=== PATIENT | male | born 1965 | race Caucasian/White ===

== ENCOUNTER 2017-01-03 11:24 | Emergency (ER) | payer BC, OTHER ==
[~2017-01-03] VITALS: Ht 177.8 cm; Wt 110.0 kg
[~2017-01-03 11:24] MED LIST: Z.0.NO CURRENT MEDS
[2017-01-03 11:26] VITALS: BP 133/87; PULSE 124; RESP 17; TEMP 98.2; O2SAT 99
[2017-01-03] MEDS ORDERED: AMLO5TAB2 PO (11:41)
[2017-01-03] MEDS ORDERED: ATOR20TA15 PO (11:41)
[2017-01-03] MEDS ORDERED: HYDR25TA5 PO (11:41)
[2017-01-03 11:42] VITALS: O2SAT 95
[2017-01-03] MEDS ORDERED: SODIUM CHLOR 0.9% 1000 ML INJ 1,000 ML IV ONE ×2 (11:45→12:45)
[2017-01-03] MEDS ORDERED: MECLIZINE HCL 25 MG TAB PO ONE (11:45)
[2017-01-03] MEDS ORDERED: SODIUM CHLORIDE 0.9% FLUSH 10 ML FLUSH IVF PRN (11:45)
[2017-01-03 11:48] VITALS: BP_SYST 101; BP_SYST 114; BP_SYST 118; BP_DIAS 60; BP_DIAS 67; BP_DIAS 74; RESP 19; RESP 20; RESP 21
--- NOTE | 2017-01-03 11:50 | PD ---
HPI Chief Complaint: Dizziness Time Seen by Provider: 11:42 Travel History International Travel<30 days: No Contact w/Intl Traveler<30days: No Traveled to known affect area: No History of Present Illness HPI Patient comes in for evaluation of dizziness that began earlier today while at work. Patient states he was standing up for little while when the dizziness began. Patient reports associated nausea, diaphoresis, and some dyspnea. Patient denies any chest pain, headache, vomiting, back pain, abdominal pain, loss or change in bowel or bladder, numbness or tingling anywhere, or being on any blood thinners. Symptoms seem worse when standing and improves with sitting. [facility] where he had a EKG done that showed he was in sinus tachycardia 104. Patient states they wanted him to come via EMS, however patient refused and drove himself here. [facility] Past Medical History High Cholesterol: Yes Diabetes: No Diminished Hearing: No Hypertension: Yes Immunizations Current: No Influenza Vaccination: Yes ?: Not Social History Alcohol Use: Yes (OCCASIONALLY) Tobacco Use: Yes (1 PPD) Substance Use: No Allergies-Medications (Allergen,Severity, Reaction): Coded Allergies: No Known Allergies (Verified , 01/03/17) Reported Meds & Prescriptions Reported Meds & Active Scripts Active Reported Atorvastatin (Atorvastatin Calcium) 20 Mg Tab 20 Mg PO HS Amlodipine (Amlodipine Besylate) 5 Mg Tab 5 Mg PO DAILY Hydrochlorothiazide 25 Mg Tab 25 Mg PO DAILY Review of Systems Except as stated in HPI: all other systems reviewed are Neg Physical Exam Narrative GENERAL: Well-developed, overly nourished, in no acute distress, and non-ill appearing. SKIN: Focused skin assessment warm and dry. HEAD: Atraumatic. Normocephalic. EYES: Pupils equal and round. EOMI. No scleral icterus. No injection or drainage. ENT: No nasal bleeding or discharge. Mucous membranes pink and moist. NECK: Trachea midline. No JVD. Supple. No nuclear rigidity. CARDIOVASCULAR: Tachycardia rate and regular rhythm. No murmur appreciated. RESPIRATORY: No accessory muscle use. No respiratory distress. Clear to auscultation. Breath sounds equal bilaterally. MUSCULOSKELETAL: No obvious deformities. No clubbing. No cyanosis. No edema. Full range of motion. NEUROLOGICAL: Awake and alert. No obvious cranial nerve deficits. Motor grossly within normal limits. Normal speech. PSYCHIATRIC: Appropriate mood and affect; insight and judgment normal. Data Data Last Documented VS Vital Signs Date Time Temp Pulse Resp B/P Pulse Ox O2 Delivery O2 Flow Rate FiO2 01/03/17 11:48 100 19 114/74 109 21 118/67 115 20 101/60 01/03/17 11:42 95 Room Air 01/03/17 11:26 98.2 Orders Electrocardiogram (01/03/17 11:36) Basic Metabolic Panel (Bmp) (01/03/17 11:36) Complete Blood Count With Diff (01/03/17 11:36) Magnesium (Mg) (01/03/17 11:36) Ckmb (Isoenzyme) Profile (01/03/17 11:36) Troponin I (01/03/17 11:36) Act Partial Throm Time (Ptt) (01/03/17 11:36) Prothrombin Time / Inr (Pt) (01/03/17 11:36) Chest, Single Ap (01/03/17 11:36) Ecg Monitoring (01/03/17 11:36) Iv Access Insert/Monitor (01/03/17 11:36) Oximetry (01/03/17 11:36) Meclizine (Antivert) (01/03/17 11:45) Sodium Chloride 0.9% Flush (Ns Flush) (01/03/17 11:45) D-Dimer (01/03/17 11:36) Orthostatic Vital Signs (01/03/17 11:36) Sodium Chlor 0.9% 1000 Ml Inj (Ns 1000 M (01/03/17 11:45) Sodium Chlor 0.9% 1000 Ml Inj (Ns 1000 M (01/03/17 12:45) Labs Laboratory Tests Test 01/03/17 11:50 White Blood Count 14.1 TH/MM3 Red Blood Count 5.52 MIL/MM3 Hemoglobin 16.6 GM/DL Hematocrit 47.7 % Mean Corpuscular Volume 86.4 FL Mean Corpuscular Hemoglobin 30.1 PG Mean Corpuscular Hemoglobin 34.8 % Concent Red Cell Distribution Width 14.0 % Platelet Count 348 TH/MM3 Mean Platelet Volume 9.1 FL Neutrophils (%) (Auto) 76.5 % Lymphocytes (%) (Auto) 17.1 % Monocytes (%) (Auto) 5.5 % Eosinophils (%) (Auto) 0.7 % Basophils (%) (Auto) 0.2 % Neutrophils # (Auto) 10.8 TH/MM3 Lymphocytes # (Auto) 2.4 TH/MM3 Monocytes # (Auto) 0.8 TH/MM3 Eosinophils # (Auto) 0.1 TH/MM3 Basophils # (Auto) 0.0 TH/MM3 CBC Comment AUTO DIFF Differential Total Cells 100 Counted Neutrophils % (Manual) 59 % Band Neutrophils % 4 % Lymphocytes % 26 % Monocytes % 2 % Neutrophils # (Manual) 10.0 TH/MM3 Metamyelocytes 3 % Myelocytes 5 % Differential Comment FINAL DIFF MANUAL Plasma Cells 1 % Platelet Estimate NORMAL Platelet Morphology Comment NORMAL Red Cell Morphology Comment NORMAL Prothrombin Time 10.9 SEC Prothromb Time International 1.0 RATIO Ratio Activated Partial 29.4 SEC Thromboplast Time D-Dimer Quantitative (PE/DVT) 0.43 MG/L FEU Sodium Level 133 MEQ/L Potassium Level 3.6 MEQ/L Chloride Level 98 MEQ/L Carbon Dioxide Level 25.8 MEQ/L Anion Gap 9 MEQ/L Blood Urea Nitrogen 12 MG/DL Creatinine 1.24 MG/DL Estimat Glomerular Filtration 62 ML/MIN Rate Random Glucose 92 MG/DL Calcium Level 9.5 MG/DL Magnesium Level 2.2 MG/DL Total Creatine Kinase 69 U/L Troponin I LESS THAN 0.02 NG/ML MDM Medical Decision Making Medical Screen Exam Complete: Yes Emergency Medical Condition: Yes Interpretation(s) EKG reviewed by Dr. Buck shows sinus tachycardia with ventricular rate of 105. No STEMI. Differential Diagnosis Acute coronary syndrome, PE, orthostatic hypotension, anemia, electrolyte abnormality, pneumonia, other Narrative Course Patient presented with dizziness. There was no near or true syncope. It appears clinically due to volume depletion. The patient denied any symptoms of chest pain, palpitations, or skipped heartbeats. The patient denied and headache. The patient denied any bloody or tarry stools. The patient has no significant risk factors and no significant co-morbidities. There was no evidence to suggest neurologic or cardiac etiology or GIB. The diagnosis and findings were discussed with the patient and the patient was instructed to follow up with their primary physician. Patient in no obvious distress upon re-evaluation. All pertinent laboratory/ Radiology result(s) discussed with patient. Discussed patient with Dr. Buck, who saw and evaluated the patient and is in agreement with plan of care and disposition. Any questions/concerns in reference to patient diagnosis/ condition discussed and clarified prior to patient's discharge. Reinforced sheer importance of close follow up with patient's primary physician or primary care clinic. Instructed patient to return to ED immediately, if symptoms return/ worsen. Pt showed understanding of above instructions. Further instructions and recommendations were detailed in discharge paperwork. Pt ambulated without difficulty out of ED at discharge. Diagnosis Primary Impression: Dizziness Additional Impression: Leukocytosis, unspecified Patient Instructions: Dizziness (ED), General Instructions, Leukocytosis (ED) Additional Instructions: Follow-up with your primary care physician in one to 2 days for reevaluation and for evaluation of slightly elevated white blood cell count that was noted here today. Drink plenty of non-caffeinated and nonalcoholic fluids. Return to the emergency department if symptoms get worse. Disposition: 01 DISCHARGE HOME Condition: Stable Cristobal Paz January 03, 2017 11:50
--- NOTE | 2017-01-03 11:59 | RADRPT ---
EXAM DATE/TIME: 01/03/2017 11:43 [facility] COMPARISON: No previous studies available for comparison. INDICATIONS : Palpitations, weakness, short of breath MEDICAL HISTORY : None. SURGICAL HISTORY : right shoulder ENCOUNTER: Initial ACUITY: 1 day PAIN SCORE: 0/10 LOCATION: Bilateral chest FINDINGS: A single view of the chest demonstrates the lungs to be symmetrically aerated without evidence of mas s, infiltrate or effusion. The cardiomediastinal contours are unremarkable. Osseous structures are intact. CONCLUSION: No acute disease. Elijah Suggs MD FACR on January 03, 2017 at 11:57 Board Certified Radiologist. This report was verified electronically.
[2017-01-03 12:15] LABS: AUTOMATED NEUTROPHIL # 10.8 TH/MM3 (1.8-7.7); BASOPHIL % 0.2 % (0.0-2.0); EOSINOPHIL # 0.1 TH/MM3 (0-0.4); EOSINOPHIL % 0.7 % (0.0-4.0); HEMATOCRIT 47.7 % (39.0-51.0); LYMPH % 17.1 % (9.0-44.0); LYMPHOCYTE # 2.4 TH/MM3 (1.0-4.8); MEAN CELL VOLUME 86.4 FL (80.0-100.0); MEAN CORPUSCULAR HEMOGLOBIN 30.1 PG (27.0-34.0); MEAN CORPUSCULAR HGB CONC 34.8 % (32.0-36.0); MONO % 5.5 % (0.0-8.0); NEUT % 76.5 % (16.0-70.0); PLATELET COUNT 348 TH/MM3 (150-450); RED BLOOD COUNT 5.52 MIL/MM3 (4.50-5.90); WHITE BLOOD COUNT 14.1 TH/MM3 (4.0-11.0)
[2017-01-03 12:17] LABS: HEMO FLAGS AUTO DIFF
[2017-01-03 12:30] LABS: APTT (PATIENT) 29.4 SEC (24.3-30.1); PROTHROMBIN TIME - PATIENT 10.9 SEC (9.8-11.6)
[2017-01-03 12:32] LABS: ANION GAP 9 MEQ/L (5-15); BICARBONATE 25.8 MEQ/L (21.0-32.0); BLOOD UREA NITROGEN 12 MG/DL (7-18); CHLORIDE 98 MEQ/L (98-107); GLOMERULAR FILTRATION RATE 62 ML/MIN (>89); MAGNESIUM 2.2 MG/DL (1.5-2.5); POTASSIUM 3.6 MEQ/L (3.5-5.1); SODIUM (NA) 133 MEQ/L (136-145)
[2017-01-03 12:40] LABS: CREATINE KINASE 69 U/L (39-308)
[2017-01-03 12:58] LABS: BANDS 4 % (0-6); METAMYELOCYTES 3 % (0-1); MYELOCYTES 5 % (0-0); PLASMA CELLS 1 % (0-0); PLATELET ESTIMATE SMEAR NORMAL (NORMAL); PLATELET MORPHOLOGY NORMAL (NORMAL); POLYS (SEG NEUTROPHILS) 59 % (16-70); WBC DIFF SAMPLE 100
[2017-01-03 12:59] LABS: SCAN/DIFF FINAL DIFF MANUAL
--- NOTE | 2017-01-04 15:47 | EKG ---
Date Performed: 01/03/2017 Time Performed: 11:42:26 PTAGE: 51 years EKG: SINUS TACHYCARDIA POSSIBLE LEFT ATRIAL ENLARGEMENT INCOMPLETE RIGHT BUNDLE BRANCH BLOCK POS SIBLE RIGHT VENTRICULAR HYPERTROPHY NONSPECIFIC T-WAVE ABNORMALITY Compared to prior tracing no signi ficant change ABNORMAL ECG NO PREVIOUS TRACING DOCTOR: Jerome Ballard Interpretating Date/Time 01/04/2017 15:45:19
== END 2017-01-03 14:23 | disposition home or self-care (01) ==
LOC: NEPE 11:24
DX: R42 Dizziness and giddiness (principal); D72.829 Elevated white blood cell count, unspecified; R94.31 Abnormal electrocardiogram [ECG] [EKG]; I10 Essential (primary) hypertension; F17.210 Nicotine dependence, cigarettes, uncomplicated; Z79.899 Other long term (current) drug therapy
CPT/HCPCS: 71010; 80048; 82550; 83735; 84484; 85007; 85027; 85379; 85610; 85730; 93005; 96360; 96361; 99285; J7030